=== PATIENT | male | born 1935 | race Caucasian/White ===

== ENCOUNTER 2018-10-08 08:47 | Observation (INO) | payer MEDICARE ==
[~2018-10-08 08:47] MED LIST: Diazepam TAB(*) 5 MG PO PRN; NS 0.9% 1000 ML** 1,000 ML IV SCH
[2018-10-08] MEDS ORDERED: ceFAZolin* 2 GM* ONE DOSE (Duplex) IVPB (09:00)
[2018-10-08] MEDS ORDERED: Iohexol 180 (CONTRAST) 10 ML SDV IV ONE (10:10)
[2018-10-08] MEDS ORDERED: Lidocaine 1% INJ* 10 MG/ML 30 ML SDV ONE (10:11)
[2018-10-08 10:29] LABS: Hematocrit 36 % (42-52); Hemoglobin 12.3 g/dL (14.0-18.0); Mean Corpuscular HGB Conc 34 g/dL (31-36); Mean Corpuscular Hemoglobin 32 pg (27-31); Mean Corpuscular Volume 94 fL (80-94); Mean Platelet Volume 8.1 fL (7.4-10.4); Platelet Count 146 10^3/uL (150-450); Red Blood Count 3.84 10^6 /uL (4.18-5.48); Red Cell Distribution Width 13 % (10.5-15); White Blood Count 5.6 10^3/uL (3.5-10.8)
[2018-10-08 10:37] LABS: Activated Partial Thrombo Time 33.9 seconds (26.0-36.3); INR 1.09 (0.82-1.09)
[2018-10-08 10:47] LABS: BUN/Creatinine Ratio 23.1 (8-20); Calcium 9.7 mg/dL (8.6-10.3); EGFR Non-African American 65.3 (>60); Potassium 3.9 mmol/L (3.5-5.0)
[2018-10-08] MEDS ORDERED: Midazolam* 1 MG/ML 5 ML VIAL (5 MG) ONE (10:50)
[2018-10-08] MEDS ORDERED: Flumazenil* 0.1 MG/ML 5 ML MDV ONE (10:50)
[2018-10-08] MEDS ORDERED: Naloxone* 0.4 MG/ML 1 ML VIAL ONE (10:50)
[2018-10-08] MEDS ORDERED: fentaNYL* 50 MCG/ML 2 ML VIAL (100 MCG VIAL) ONE (11:35)
[2018-10-08] MEDS ORDERED: ceFAZolin 1 GM ADVAN(*) 1 GM in NS 0.9% 50 ML* 50 ML IVPB SCH (18:00)
[2018-10-08] MEDS ORDERED: CMC: Rosuvastatin (NF) 5 MG TAB PO SCH (18:30)
[2018-10-08] MEDS ORDERED: Finasteride TAB* 5 MG PO SCH ×2 (18:30→18:31)
[2018-10-08] MEDS ORDERED: Tamsulosin CAP* 0.4 MG PO SCH (18:30)
[2018-10-08] MEDS: Acetaminophen TAB* 325 MG PO PRN (20:03)
[2018-10-08] MEDS: Carvedilol TAB* 6.25 MG PO SCH (20:04)
[2018-10-08] MEDS: ceFAZolin 1 GM ADVAN(*) 1 GM in NS 0.9% 50 ML* 50 ML IVPB SCH (20:10)
[2018-10-08] MEDS: MAGNESIUM OXIDE PO SCH (20:12)
[2018-10-09] MEDS: Acetaminophen TAB* 325 MG PO PRN ×2 (01:12→08:46)
[2018-10-09] MEDS: ceFAZolin 1 GM ADVAN(*) 1 GM in NS 0.9% 50 ML* 50 ML IVPB SCH ×2 (04:25→11:12)
[2018-10-09] MEDS: MAGNESIUM OXIDE PO SCH (08:37)
[2018-10-09] MEDS: Carvedilol TAB* 6.25 MG PO SCH (08:47)
[2018-10-09] MEDS ORDERED: Ramipril CAP* 10 MG PO SCH (09:00)
[2018-10-09] MEDS ORDERED: Polyethylene Glycol 3350* 17 GM PACKET PO SCH (09:00)
[2018-10-09] MEDS ORDERED: PTO: Tiotropium Brom/Olodaterol(NF) 4 GM 60 PUFF MDI INH SCH (09:00)
[2018-10-09] MEDS ORDERED: Multivitamins/Minerals TAB PO SCH (09:00)
[2018-10-09 11:52] VITALS: BP 152/68
--- NOTE | 2018-10-13 03:03 | OP ---
CC: Dr. Matthews.* DATE OF OPERATION: 10/08/18 - ROOM #445 DATE OF : 35 SURGEON: Marleni Barragan MD. ANESTHESIA: MAC. PRE-OP DIAGNOSIS: High-degree heart block with bradycardia. POST-OP DIAGNOSIS: High-degree heart block with bradycardia. OPERATIVE PROCEDURE: Dual-chamber pacemaker implantation. ESTIMATED BLOOD LOSS: Less than 5 cc. COMPLICATIONS: None. DESCRIPTION OF PROCEDURE: The indications, risks, and benefits of the procedure had been discussed with the patient, in the presence of his , prior to the procedure as an outpatient and also questions were answered on the day of the procedure and he was amenable. The patient is right handed and the left subclavian fossa was prepped and draped in the usual sterile fashion. A time-out was called. The patient received a total of 7 mg of Versed and 25 mcg of fentanyl for sedation as well as 1% lidocaine for local anesthesia throughout the entire procedure. The patient received 10 cc of radiopaque dye in the left upper extremity outlining the left axillary and the subclavian vein. Following this, local anesthesia was given. Using a 10-blade knife, a 2-cm incision was made in the left subclavian fossa and using Bovie and blunt dissection it was extended to the level of the pectoralis muscle. Additional lidocaine was infused medially and laterally following this using blunt dissection and a small pocket was fashioned. Using modified Seldinger technique, the left subclavian vein was cannulated and , using fluoroscopic guidance, a guidewire was inserted into the right atrium. This procedure was repeated with a second guidewire. Using an introducer technique, the right ventricular lead was guided initially into the apex and then slid up into the septum and actively fixed in place. Pacing and sensing thresholds were good on the second try. Using the other guidewire and introducer technique, the atrial lead was guided into the right-atrial appendage and actively fixed in place. Pacing and sensing thresholds were good. The leads were then sewn to the pocket, taking care to ensure adequate slack for movement. Following this, the pocket was copiously irrigated with normal saline. The leads were then attached to the generator, the generator was placed in the pocket. Pacing and sensing thresholds were again checked from the pocket, were good. The incision was closed using two layers of resorbable sutures, 2-0, followed by 4-0, followed by raymond and an external dressing. FINDINGS: The system is an MRI-compatible system by [employer]. The device is a [employer] model number W1DR01, serial number [id number]. Atrial lead is a Medtronic model 5076-52, serial number [id number]. The ventricular lead is a Medtronic model 5076-58, serial number [id number]. R-waves were sensed at 2.7 mV with an atrial lead impedance of 574 ohms and an atrial pacing threshold of 1 volt at 0.5 msec. R-waves were sensed at 10.6 mV with a ventricular lead impedance of 658 ohms and a ventricular pacing threshold of 0.4 volts at 0.5 msec. The patient was hemodynamically stable throughout the procedure. Again, no complication. [id number]/[facility] #: [id number] HAM
--- NOTE | 2018-10-13 21:13 | DS ---
CC: Dr. Matthews * DISCHARGE SUMMARY: DATE OF ADMISSION: DATE OF DISCHARGE: 10/09/18 HISTORY OF PRESENT ILLNESS AND HOSPITAL COURSE: The patient is an 83-year-old gentleman with bradycardia and evidence of high-degree heart block after several weeks of event monitor readings, long first-degree heart block, second- degree heart block type I, but with sleep evidence of higher degree heart block with 2 sinus beats unconducted. The patient has never fainted, but discussion had about marked high-degree heart block and risk of progression of block were discussed extensively with the patient and his and they were amenable to proceeding for pacemaker implantation. The patient underwent dual-chamber pacemaker implantation on 10/08/18 without complication. On the day of discharge, he had some mild incisional tenderness, but otherwise felt well. PROBLEM LIST: 1. High-degree AV block, sinus bradycardia. 2. Coronary artery disease, on medical management. 3. Aortic aneurysm. 4. Hypertension. 5. Dyslipidemia. 6. Centripetal obesity. 7. Glucose intolerance. 8. Prostate cancer. 9. Osteoarthritis. 10. Spinal stenosis. PAST SURGICAL HISTORY: Includes appendectomy and tonsillectomy. MEDICATION INTOLERANCES: Include CODEINE and ULTRACET (itching and GI). PHYSICAL EXAMINATION: On the day of discharge, the patient is 6 feet, weighs 288 pounds with a BMI of 39. Blood pressure 152/68, pulse was 63, temperature 98 degrees, oxygen saturation on room air 96%, respiratory rate 16. General Appearance: Centripetally overweight elderly gentleman, lying at 30 to 40 degrees. His was in the room. He appeared comfortable. Psychologically, pleasant and cooperative. Neurologically, awake, alert, and oriented to person , place, and time. Grossly normal sensory and motor function in the bed. Skin : Warm, dry. Incision to the left subclavian fossa healing well. No ecchymosis , no hematoma, and no infectious signs. HEENT: Mucous membranes moist. Neck: Without increased JVP. Breath sounds clear in all andrade. No wheezing, rales , or rhonchi. Coronary: S1, S2, regular. Abdomen: Overweight. Lower extremities were warm. DIAGNOSTIC STUDIES: Chest x-ray from 10/08/18 and 10/09/18 both showed good position of both leads. No pneumothorax. Pacemaker interrogation done on the day of discharge showed he was atrially pacing 77% of the time, ventricularly pacing 75% of the time. Thresholds were checked. P waves sensed at 3.4 mV with an atrial lead impedance of 399 ohms and a ventricular pacing threshold of 0.5 V at 0.4 msec. R waves sensed at 7.6 mV with a ventricular lead impedance of 494 ohms and a ventricular pacing threshold of 0.5 V at 0.4 msec. No tachyarrhythmias overnight. ASSESSMENT: In conclusion, Mr. Shen is an 83-year-old gentleman with high - degree atrioventricular block as above who underwent dual-chamber pacemaker implantation without complications and hemodynamically stable on the day of discharge. DISCHARGE MEDICATIONS: As follows: 1. Tylenol p.r.n. 2. Keflex 500 mg t.i.d. for 4 days. 3. Aspirin 81 mg a day. 4. Calcium and vitamin D. 5. Coreg 6.25 mg b.i.d. 6. Finasteride 5 mg a day. 7. Glucosamine/chondroitin. 8. Magnesium oxide 500 mg b.i.d. 9. MultiVites 1 tab daily. 10. PEG 1 packet daily. 11. Ramipril 10 mg a day. 12. Rosuvastatin 5 mg a day. 13. Tamsulosin 0.4 mg a day. 14. Tiotropium bromide inhaler 2 puffs b.i.d. Eliquis has been held and was not resumed on discharge. We will decide on outpatient followup. OUTPATIENT FOLLOWUP: Will be in 1 week for wound check and 1 month for full interrogation and evaluation. CONCLUSION: Uncomplicated pacemaker implantation. CONDITION AT DISCHARGE: Stable and good. DISPOSITION: Home. [id number]/[facility] #: [id number] [facility]
== END 2018-10-09 13:00 | disposition home or self-care (01) ==
LOC: CHICATH 08:47 → MEDTELE 12:28
PROVIDERS: ADMIT Specialist; ATTEND Specialist
DX: I44.2 Atrioventricular block, complete (principal); I44.0 Atrioventricular block, first degree; I44.1 Atrioventricular block, second degree; I71.2 Thoracic aortic aneurysm, without rupture; I10 Essential (primary) hypertension; E78.5 Hyperlipidemia, unspecified; Z96.641 Presence of right artificial hip joint; M16.10 Unilateral primary osteoarthritis, unspecified hip; M70.60 Trochanteric bursitis, unspecified hip; I25.10 Atherosclerotic heart disease of native coronary artery without angina pectoris; E66.9 Obesity, unspecified; E74.39 Other disorders of intestinal carbohydrate absorption; C61 Malignant neoplasm of prostate; K44.9 Diaphragmatic hernia without obstruction or gangrene
CPT/HCPCS: 33208; 36415; 71045; 71046; 80048; 85027; 85610; 85730; 93005; 96365; 96366; 96372; 96374; 99156; 99157; A9270-GY; C1785; C1892; C1898; G0378; J0690; J2250; J2310; J3010

== ENCOUNTER 2019-07-22 10:42 | Inpatient (IN) | payer MEDICARE ==
--- NOTE | 2019-07-09 17:41 | HP ---
HISTORY AND PHYSICAL: DATE OF ADMISSION/SURGERY: 07/22/19 DATE OF OFFICE VISIT: 07/09/19 SURGEON: Aundrea Cuevas MD * (DICTATED BY SAHYNE STRONG) PROCEDURE: Left total hip arthroplasty. CHIEF COMPLAINT: Left hip pain. HISTORY OF PRESENT ILLNESS: Mr. Shen is an 84-year-old gentleman with severe end-stage osteoarthritis of the left hip. He has failed conservative treatment and elected to proceed with a left total hip arthroplasty. PAST MEDICAL HISTORY: 1. Aortic aneurysm. 2. Pacemaker. 3. AFib. 4. Prostate cancer. 5. Diabetes. 6. Chronic kidney disease stage 2. PAST SURGICAL HISTORY: 1. Right total hip arthroplasty. 2. Pacemaker placement. 3. Tonsillectomy. 4. Foot surgery. 5. Appendectomy. CURRENT MEDICATIONS: 1. Multaq 400 mg twice a day. 2. Eliquis 5 mg twice a day. 3. Ramipril 5 mg 2 tabs daily. 4. Coreg 3.125 mg 2 tabs twice a day. 5. Crestor 5 mg a day. 6. Proscar 5 mg daily. 7. Centrum Silver. 8. Glucosamine. 9. Polyethylene glycol. 10. Aspirin 81 mg a day. 11. Tamsulosin 0.4 mg. 12. Calcium with vitamin D. 13. Stiolto Respimat inhaler. 14. Tylenol as needed. 15. MiraLAX. ALLERGIES: CODEINE, ULTRACET and TYLENOL NO. 3 causing itching. FAMILY HISTORY: Coronary artery disease and COPD. SOCIAL HISTORY: He is an 84-year-old gentleman, lives with his . He does not smoke. REVIEW OF SYSTEMS: A complete 14-point review of systems was reviewed with the patient. Positive for diabetes. He denies history of DVT, PE, hepatitis, HIV, or anesthesia problems. PHYSICAL EXAMINATION GENERAL: He is well developed, well nourished, in no acute distress. VITAL SIGNS: He stands 72 inches tall, weighs 246 pounds. His blood pressure is 128/72 and his heart rate is 67. HEENT: Normocephalic, atraumatic. NECK: Supple. No palpable lymph nodes. PULMONARY: The lungs are clear to auscultation bilaterally. CARDIO: Regular rate and rhythm. Strong S1, S2. ABDOMEN: Soft, nontender, nondistended. NEUROLOGICAL: He is alert and oriented x3. MUSCULOSKELETAL: Left lower extremity: The skin is intact. There are no open wounds or abrasions. He walks with an antalgic-type gait favoring the left hip. He has decreased internal and external rotation. He is able to dorsiflex and plantar flex. There is a 2+ dorsalis pedis pulse and intact sensation. ASSESSMENT AND PLAN: Mr. Shen is an 84-year-old gentleman with severe end- stage osteoarthritis of the left hip. He has failed conservative treatment and elected to proceed with a left total hip arthroplasty. The surgery is scheduled for 07/22/[address] Cuevas discussed the risks and benefits of the surgery at today's visit and all of his questions were answered. We will not give TXA to this patient. His last dose of Eliquis will be on 07/19/19. He will continue his daily aspirin. SHAYNE STRONG [id number]/[facility] #: [id number] [facility]
[~2019-07-22 10:42] MED LIST changes: +Buffered Lidocaine 1% SYRIN* 1 ML/SYRINGE INTRADERM ONE; -Diazepam TAB(*) 5 MG PO PRN; +Lactated Ringers 1000 ML Bag* 1,000 ML IV SCH; -NS 0.9% 1000 ML** 1,000 ML IV SCH
--- OUTSIDE RECORDS SUMMARY | 2019-07-22 10:47 | XMS REPORT | Continuity of Care Document ---
:1935 External Reference #:[id number] Author Name Aundrea Cuevas M.D. (transmitted by agent of provider Darlene Francis) Address [address] [place] [address] Problems Active Problems Provider Date Essential hypertension Marleni Barragan M.D. Onset: 04/19/2013 Aneurysm of thoracic aorta Marleni Barragan M.D. Onset: 04/19/2013 Benign essential hypertension Marleni Barragan M.D. Onset: 11/08/2014 Hyperlipidemia Marleni Barragan M.D. Onset: 11/08/2014 Coronary arteriosclerosis Marleni Barragan M.D. Onset: 11/08/2014 Trochanteric bursitis Storm Moraes M.D. Onset: 04/28/2015 Localized, primary osteoarthritis of the Storm Moraes M.D. Onset: 2015 pelvic region and thigh Prosthetic arthroplasty of the hip Storm Moraes M.D. Onset: 07/20/2015 First degree atrioventricular block Marleni Barragan M.D. Onset: 07/30/2018 Complete atrioventricular block Marleni Barragan M.D. Onset: 09/25/2018 Atrioventricular block, second degree Marleni Barragan M.D. Onset: 09/25/2018 Cardiac pacemaker in situ Marleni Barragan M.D. Onset: 01/29/2019 Aortic aneurysm Marleni Barragan M.D. Onset: 01/29/2019 Paroxysmal atrial fibrillation Marleni Barragan M.D. Onset: 01/29/2019 Social History Type Date Description Comments Sex Unknown ETOH Use Occasionally consumes holiday dinners wine ETOH Use Occasionally consumes beer Tobacco Use Start: Unknown Patient is a former quit in 1984 End: Unknown smoker Recreational Drug Use Denies Drug Use Smoking Status Reviewed: 07/09/19 Patient is a former quit in 1985 smoker Exercise Type/Frequency Exercises regularly stretching exercises twice daily Physical therapy 30 minutes twice weekly Allergies, Adverse Reactions, Alerts Active Allergies Reaction Severity Comments Date Codeine itching upper body tylenol with codeine , per 07/20/2015 patient Ultracet dizziness, N&V 07/20/2015 Tylenol 3 05/11/2019 Inactive Allergies NKDA 03/17/2012 Medications Active Medications SIG Qnty Indications Ordering Date Provider Multaq Take One Tablet 180tabs Dee Dee Rome, 12/29/2018 400mg Tablets By Mouth Twice A N.P. Day Eliquis 1 by mouth twice 180tabs Dee Dee Rome, 11/04/2018 5mg Tablets a day N.P. Ramipril 2 tabs by mouth 180caps Dee Dee Rome, 09/28/2018 5mg Capsules every day N.P. Coreg 2 tabs by mouth 360tabs Marleni Barragan, 09/25/2018 3.125mg Tablets twice a day M.D. Crestor 1 tab daily 36tabs Dee Dee Rome, 01/28/2018 5mg Tablets N.P. Amoxicillin Take 4 Capsules 8caps Storm Woodino, 02/20/2015 500mg By Mouth One M.D. Capsules Hour Before Dental Work Proscar 1 po qd 90tabs Satish Matthews, 5mg Tablets Centrum Silver 1 po qd 30tabs Satish Matthews, Tablets Glucosamine 1 tablet po Unknown Chondroitin twice daily 500mg/400mg Tablets Polyethylene Glycol 1 scoop in 8 oz QS Satish Matthews, 3350 water daily 3350 Granules Aspirin 81 po qd Satish Matthews, 81mg Tablets MD SANDS Tamsulosin HCL 2 po 1/2 hr 30caps Hardik Garcia, 0.4mg after dinner MD Capsules Calcium + D3 1 by mouth twice Unknown daily [id number] Tablets Stiolto Respimat 2 puff once Satish Matthews, daily (started MD 2.5-2.5mcg/Act Aerosol sat. 11/09/15 1 month trial) Acetaminophen Extra up to 4 per day Unknown Strength as needed for 500mg Tablets pain Miralax 17 grams by Unknown Powder mouth every day as needed Immunizations Description No Information Available Vital Signs Date Vital Result Comment 07/09/2019 12:57pm Height 72 inches 6'0" Weight 246.00 lb Heart Rate 67 /min BP Systolic 128 mmHg BP Diastolic 72 mmHg Body Temperature 97.1 F Pain Level 5 BMI (Body Mass Index) 33.4 kg/m2 07/05/2019 3:33pm Height 72 inches 6'0" Weight 250.00 lb with shoes Heart Rate 70 /min BP Systolic Sitting 130 mmHg Rue reg cuff BP Diastolic Sitting 82 mmHg Rue reg cuff BP Systolic Standing 124 mmHg Rue reg cuff BP Diastolic Standing 72 mmHg Rue reg cuff Respiratory Rate 16 /min BMI (Body Mass Index) 33.9 kg/m2 Results Test Acquired Date Facility Test Result H/L Range Note Comp Metabolic 03/19/2019 [facility] Sodium 140 mmol/L Normal 135-145 Panel [address] [place] [address] [phone] Potassium 4.2 mmol/L Normal 3.5-5.0 Chloride 108 mmol/L Normal 101-111 Co2 Carbon Dioxide 26 mmol/L Normal 22-32 Anion Gap 6 mmol/L Normal 2-11 Glucose 90 mg/dL Normal 70-100 Blood Urea Nitrogen 22 mg/dL Normal 6-24 Creatinine 1.01 mg/dL Normal 0.67-1.17 One Over Creatinine 0.99 BUN/Creatinine Ratio 21.8 High 8-20 Calcium 9.6 mg/dL Normal 8.6-10.3 Total Protein 6.3 g/dL Low 6.4-8.9 Albumin 4.0 g/dL Normal 3.2-5.2 Globulin 2.3 g/dL Normal 2-4 Albumin/Globulin Ratio 1.7 Normal 1-3 Total Bilirubin 0.60 mg/dL Normal 0.2-1.0 Alkaline Phosphatase 131 U/L High 34-104 Alt 19 U/L Normal 7-52 Ast 17 U/L Normal 13-39 Egfr Non- 70.5 >60 Egfr 85.4 >60 1 Lipid Profile 03/19/2019 [facility] Triglycerides 91 mg/dL 2 (Trig/Chol/HDL) [address] [place] [address] [phone] Cholesterol 100 mg/dL 3 HDL Cholesterol 32.5 mg/dL 4 LDL Cholesterol 49 mg/dL 5 Liver 03/19/2019 [facility] Direct 0.10 Normal 0.03-0.[address] Bilirubin mg/[place] [address] [phone] Indirect Bilirubin 0.5 mg/dL Normal 0.3-1.0 Laboratory test 03/19/2019 [facility] Uric Acid 7.2 mg/dL Normal 4.4-7.[address] [place] [address] [phone] Phosphorus 3.3 mg/dL Normal 2.5-5.0 Magnesium 1.7 mg/dL Low 1.9-2.7 CBC Auto 03/19/2019 [facility] White Blood 5.4 10^3/uL Normal 3.5-10.[address] [place] [address] [phone] Red Blood Count 4.08 10^6/uL Low 4.18-5.48 Hemoglobin 13.1 g/dL Low 14.0-18.0 Hematocrit 38 % Low 42-52 Mean Corpuscular Volume 93 fL Normal 80-94 Mean Corpuscular Hemoglobin 32 pg High 27-31 Mean Corpuscular HGB Conc 35 g/dL Normal 31-36 Red Cell Distribution Width 15 % Normal 10-15 Platelet Count 158 10^3/uL Normal 150-450 Mean Platelet Volume 8.8 fL Normal 7.4-10.4 Abs Neutrophils 3.9 10^3/uL Normal 1.5-7.7 Abs Lymphocytes 0.8 10^3/uL Low 1.0-4.8 Abs Monocytes 0.5 10^3/uL Normal 0-0.8 Abs Eosinophils 0.2 10^3/uL Normal 0-0.6 Abs Basophils 0.0 10^3/uL Normal 0-0.2 Abs Nucleated RBC 0.0 10^3/uL Granulocyte % 72.1 % Lymphocyte % 14.2 % Monocyte % 9.6 % Eosinophil % 3.6 % Basophil % 0.5 % Nucleated Red Blood Cells % 0.0 Creatinine 03/19/2019 [facility] Creatinine, 1.02 High 0.51- 0.[address] Serum mg/[place] [address] [phone] Urine Collection Time 24 hr Urine Total Volume 2500 mL Urine Creatinine Concentration 50.72 mg/dL Creatinine Clearance 86 mL/min Low 97-137 Total Protein 24HR 03/19/2019 [facility] Urine Collection Time 24 hr Urine [address] [place] [address] [phone] Urine Total Volume 2500 mL Urine TP Concentration 4 mg/dL Urine Total Protein/24HR 100 mg/24Hr Normal 0-165 1 Because ethnic data is not always readily available, this report includes an eGFR for both -Americans and non- Americans. The National Kidney Disease Education Program (NKDEP) does not endorse the use of the MDRD equation for patients that are not between the ages of 18 and 70, are , have extremes of body size, muscle mass, or nutritional status, or are non- or non-. According to the National Kidney Foundation, irrespective of diagnosis, the stage of the disease is based on the level of kidney function: Stage Description GFR(mL/min/1.73 m(2)) 1 Kidney damage with normal or decreased GFR 90 2 Kidney damage with mild decrease in GFR 60-89 3 Moderate decrease in GFR 30-59 4 Severe decrease in GFR 15-29 5 Kidney failure <15 (or dialysis) 2 Desirable: <150 Borderline High: 150-199 High: 200-499 Very High: >500 3 Desirable: <200 Borderline High: 200-239 High: >239 4 Low: <40 Desirable: 40-60 High: >60 5 Desirable: <100 Near Optimal: 100-129 Borderline High: 130-159 High: 160-189 Very High: >189 Procedures Date Code Description Status 07/07/2019 31884 Treadmill Interp/Report Only Completed 07/07/2019 30504 Stress Test Supervsn W/Out I/R Completed 07/05/2019 61586 Pace Maker Eval W/Iterative Adjment Dual Lead Completed 07/05/2019 45274 Pace Maker Eval W/Iterative Adjment Dual Lead Completed 07/05/2019 83430 EKG Tracing & Interpretation Completed 06/04/2019 28710 Icd Eval Sing,Dual,Multi Lead Remote Recpt Transm Tech Rev Completed Tech S 06/04/2019 24839 Pacemaker Check Remote Up To 90Days Single,Dual,Multiple Completed Lead 03/02/2019 92223 Icd Eval Sing,Dual,Multi Lead Remote Recpt Transm Tech Rev Completed Tech S 03/02/2019 70645 Icd Eval Sing,Dual,Multi Lead Remote Recpt Transm Tech Rev Completed Tech S 03/02/2019 23084 Pacemaker Check Remote Up To 90Days Single,Dual,Multiple Completed Lead 03/02/2019 94935 Pacemaker Check Remote Up To 90Days Single,Dual,Multiple Completed Lead 01/15/2019 77911 EKG Tracing & Interpretation Completed Medical Devices Description No Information Available Encounters Type Date Location Provider Dx Diagnosis Office Visit 06/11/2019 [facility] Aundrea Cuevas, M25.552 Pain in left hip 2:15p at [facility] M16.12 Unilateral primary osteoarthritis, left hip Office Visit 03/29/2019 1:00p [facility] Nephrology Andre AHannah I12.9 Hypertensive MD Zuleima chronic kidney disease w stg 1-4/unsp [facility] kdny N18.2 Chronic kidney disease, stage 2 (mild) E78.5 Hyperlipidemia, unspecified I10 Essential (primary) hypertension Office Visit 01/29/2019 2:00p [facility] Marleni Barragan, Z95.0 Presence of Of [facility] Collins cardiac pacemaker I71.9 Aortic aneurysm of unspecified site, without rupture I25.10 Athscl heart disease of [place] coronary artery w/o ang pctrs I48.0 Paroxysmal atrial fibrillation M48.00 Spinal stenosis, site unspecified I10 Essential (primary) hypertension Office Visit 01/15/2019 2:00p [facility] Dee Dee SHannah I48.0 Paroxysmal atrial Foster, N.P. fibrillation I44.1 Atrioventricular block, second degree R94.31 Abnormal electrocardiogram [ECG] [EKG] Z95.0 Presence of cardiac pacemaker I10 Essential (primary) hypertension I71.9 Aortic aneurysm of unspecified site, without rupture I25.10 Athscl heart disease of [place] coronary artery w/o ang pctrs Assessments Date Code Description Provider 07/09/2019 M25.552 Pain in left hip Aundrea uCevas M.D. 07/09/2019 M16.12 Unilateral primary osteoarthritis, left Aundrea Mason, M.D. hip 07/05/2019 Z95.0 Presence of cardiac pacemaker Marleni Barragan M.D. 07/05/2019 Z01.810 Encounter for preprocedural Marleni Barragan M.D. cardiovascular examination 07/05/2019 Z95.0 Presence of cardiac pacemaker Ica Pacer Schedule 07/05/2019 I44.1 Atrioventricular block, second degree Marleni Barragan M.D. 07/05/2019 I25.10 Atherosclerotic heart disease of [place] Marleni Barragan M.D. coronary artery without angina pectoris 07/05/2019 I44.1 Atrioventricular block, second degree Ica Pacer Schedule 07/05/2019 I48.0 Paroxysmal atrial fibrillation Marleni Barragan M.D. 07/05/2019 I10 Essential (primary) hypertension Marleni Barragan M.D. 07/05/2019 E78.5 Hyperlipidemia, unspecified Marleni Barragan M.D. 07/05/2019 N18.2 Chronic kidney disease, stage 2 (mild) Marleni Barragan M.D. 07/05/2019 Z95.0 Presence of cardiac pacemaker Marleni Barragan M.D. 07/05/2019 I71.2 Thoracic aortic aneurysm, without rupture Marleni Barragan M.D. 06/11/2019 M25.552 Pain in left hip Aundrea Cuevas M.D. 06/11/2019 M16.12 Unilateral primary osteoarthritis, left Aundrea Cuevas M.D. hip 06/04/2019 Z95.0 Presence of cardiac pacemaker Remote Device Checks 06/04/2019 I48.0 Paroxysmal atrial fibrillation Remote Device Checks 06/04/2019 I44.1 Atrioventricular block, second degree Remote Device Checks 03/29/2019 I12.9 Hypertensive chronic kidney disease with Andre Dewey MD stage 1 through stage 4 chronic kidney disease, or unspecified chronic kidney disease 03/29/2019 N18.2 Chronic kidney disease, stage 2 (mild) Andre Dewey MD 03/29/2019 E78.5 Hyperlipidemia, unspecified Andre Dewey MD 03/29/2019 I10 Essential (primary) hypertension Andre Dewey MD 03/02/2019 Z95.0 Presence of cardiac pacemaker Marleni Barragan M.D. 03/02/2019 Z95.0 Presence of cardiac pacemaker Remote Device Checks 03/02/2019 I48.0 Paroxysmal atrial fibrillation Marleni Barragan M.D. 03/02/2019 I48.0 Paroxysmal atrial fibrillation Remote Device Checks 03/02/2019 I44.1 Atrioventricular block, second degree Marleni Barragan M.D. 03/02/2019 I44.1 Atrioventricular block, second degree Remote Device Checks 01/29/2019 Z95.0 Presence of cardiac pacemaker Marleni Barragan M.D. 01/29/2019 I71.9 Aortic aneurysm of unspecified site, Marleni Barragan M.D. without rupture 01/29/2019 I25.10 Atherosclerotic heart disease of [place] Marleni Barragan M.D. coronary artery without angina pectoris 01/29/2019 I48.0 Paroxysmal atrial fibrillation Marleni Barragan M.D. 01/29/2019 M48.00 Spinal stenosis, site unspecified Marleni Barragan M.D. 01/29/2019 I10 Essential (primary) hypertension Marleni Barragan M.D. 01/15/2019 I44.7 Left bundle-branch block, unspecified Clay Nicolas DO [facility] 01/15/2019 I48.0 Paroxysmal atrial fibrillation Dee Dee Rome, N.P. 01/15/2019 I44.1 Atrioventricular block, second degree Dee Dee Rome, N.P. 01/15/2019 R94.31 Abnormal electrocardiogram [ECG] [EKG] Dee Dee Rome, N.P. 01/15/2019 Z95.0 Presence of cardiac pacemaker Dee Dee Rome, N.P. 01/15/2019 I10 Essential (primary) hypertension Dee Dee Rome, N.P. 01/15/2019 I71.9 Aortic aneurysm of unspecified site, Dee Dee Rome, N.P. without rupture 01/15/2019 I25.10 Atherosclerotic heart disease of [place] Dee Dee Rome, N.P. coronary artery without angina pectoris Plan of Treatment Future Appointment(s):08/06/2019 1:00 [facility] - Andre Dewey MD at [facility] Pfzlfunrbg85/13/2020 8:30 am - Aundrea Cuevas M.D. at [facility] [place]207/09/2019 - Aundrea Cuevas M.D.M25.552 Pain in left hipFollow up:Follow up : 2 weeks after fgodtfrB32.12 Unilateral primary osteoarthritis, left hip Functional Status Description No Information Available Mental Status Description No Information Available Referrals Description No Information Available
--- OUTSIDE RECORDS SUMMARY | 2019-07-22 10:47 | XMS REPORT | Continuity of Care Document ---
:1935 External Reference #:[id number] Author Name Aundrea Cuevas M.D. (transmitted by agent of provider Darlene Francis) Address [address] [place] [address] Problems Active Problems Provider Date Essential hypertension [...] Use Denies Drug Use Smoking Status Reviewed: 06/11/19 Patient is a former quit in 1985 [...] SIG Qnty Indications Ordering Date Provider Multaq 1 by mouth twice 180tabs Dee Dee Rome, 12/29/2018 400mg Tablets a day N.P. Eliquis 1 by mouth twice 180tabs Dee [...] D3 1 by mouth twice Unknown daily [id number] Tablets Stiolto Respimat 2 puff once Satish Matthews, daily (started MD 2.5-2.5mcg/Act Aerosol sat. 11/09/15 1 month trial) Acetaminophen Extra up to 4 per day Unknown Strength as needed for 500mg Tablets pain Miralax 17 grams by Unknown Powder mouth every day as needed Immunizations Description No Information Available Vital Signs Date Vital Result Comment 06/11/2019 2:38pm Height 72 inches 6'0" Weight 244.00 lb Heart Rate 60 /min BP Systolic 118 mmHg BP Diastolic 70 mmHg Respiratory Rate 18 /min Pain Level 5 BMI (Body Mass Index) 33.1 kg/m2 03/29/2019 12:43pm Height 72 inches 6'0" Weight 241.00 lb Heart Rate 77 /min BP Systolic Sitting 120 mmHg r arm BP Diastolic Sitting 68 mmHg r arm O2 % BldC Oximetry 98 % BMI (Body Mass Index) 32.7 kg/m2 Results Test Acquired Date Facility Test Result H/L Range Note Comp Metabolic 03/19/2019 [facility] Sodium 140 mmol/L Normal 135-145 Panel [address] [place] [address] [phone] Potassium 4.2 mmol/L Normal 3.5-5.0 Chloride 108 [...] Egfr 85.4 >60 1 Lipid Profile 03/19/2019 [facility] Triglycerides 91 mg/dL 2 (Trig/Chol/HDL) [address] [place] [address] [phone] Cholesterol 100 mg/dL 3 HDL Cholesterol 32.5 mg/dL 4 LDL Cholesterol 49 mg/dL 5 Liver 03/19/2019 [facility] Direct 0.10 Normal 0.03-0.[address] Bilirubin mg/[place] [address] [phone] Indirect Bilirubin 0.5 mg/dL Normal 0.3-1.0 Laboratory test 03/19/2019 [facility] Uric Acid 7.2 mg/dL Normal 4.4-7.[address] [place] [address] [phone] Phosphorus 3.3 mg/dL Normal 2.5-5.0 Magnesium 1.7 mg/dL Low 1.9-2.7 CBC Auto 03/19/2019 [facility] White Blood 5.4 10^3/uL Normal 3.5-10.[address] [place] [address] [phone] Red Blood Count 4.08 10^6/uL Low 4.18-5.48 [...] Red Blood Cells % 0.0 Creatinine 03/19/2019 [facility] Creatinine, 1.02 High 0.51- 0.[address] Serum mg/[place] [address] [phone] Urine Collection Time 24 hr Urine Total Volume 2500 mL Urine Creatinine Concentration 50.72 mg/dL Creatinine Clearance 86 mL/min Low 97-137 Total Protein 24HR 03/19/2019 [facility] Urine Collection Time 24 hr Urine [address] [place] [address] [phone] Urine Total Volume 2500 mL Urine TP Concentration 4 mg/dL Urine Total Protein/24HR 100 mg/24Hr Normal 0-165 Laboratory test 12/28/2018 [facility] Magnesium 1.7 mg/dL Low 1.9-2.7 finding [address] [place] [address] [phone] Basic Metabolic 12/28/2018 [facility] Sodium 140 mmol/L Normal 135-145 Panel [address] [place] [address] [phone] Potassium 3.9 mmol/L Normal 3.5-5.0 Chloride 107 mmol/L Normal 101-111 Co2 Carbon Dioxide 24 mmol/L Normal 22-32 Anion Gap 9 mmol/L Normal 2-11 Glucose 103 mg/dL High 70-100 Blood Urea Nitrogen 14 mg/dL Normal 6-24 Creatinine 1.02 mg/dL Normal 0.67-1.17 BUN/Creatinine Ratio 13.7 Normal 8-20 Calcium 9.9 mg/dL Normal 8.6-10.3 Egfr Non- 69.7 >60 Egfr 84.4 >60 6 Basic Metabolic Panel 12/28/2018 N2N/CCD Import Egfr Non- 69.7 > 60 Pry[place] Calcium 9.9 8.6-10.3 BUN/Creatinine Ratio 13.7 8-20 Creatinine 1.02 0.67-1.17 Blood Urea Nitrogen 14 6-24 Glucose 103 High 70-100 Egfr 84.4 >60 Anion Gap 9 2-11 Co2 Carbon Dioxide 24 22-32 Chloride 107 101-111 Potassium 3.9 3.5-5.0 Sodium 140 135-145 Magnesium 12/28/2018 N2N/CCD Import Magnesium 1.7 Low 1.9-2.7 1 Because ethnic data is not always [...] High: 130-159 High: 160-189 Very High: >189 6 Because ethnic data is not always readily [...] 15-29 5 Kidney failure <15 (or dialysis) Procedures Date Code Description Status 06/04/2019 63117 Icd Eval Sing,Dual,Multi Lead Remote Recpt Transm Tech Rev Completed Tech S 06/04/2019 52375 Pacemaker Check Remote Up To 90Days Single,Dual,Multiple Completed Lead 03/02/2019 13303 Icd Eval Sing,Dual,Multi Lead Remote Recpt Transm Tech Rev Completed Tech S 03/02/2019 27918 Icd Eval Sing,Dual,Multi Lead Remote Recpt Transm Tech Rev Completed Tech S 03/02/2019 10824 Pacemaker Check Remote Up To 90Days Single,Dual,Multiple Completed Lead 03/02/2019 82408 Pacemaker Check Remote Up To 90Days Single,Dual,Multiple Completed Lead 01/15/2019 31156 EKG Tracing & Interpretation Completed 01/06/2019 03422 ECHO Transthoracic, Real-Time 2D With Doppler And Color Completed Flow 01/06/2019 42867 ECHO Transthoracic, Real-Time 2D With Doppler And Color Completed Flow 12/31/2018 83080 Cardioversion Completed 12/28/2018 64163 EKG Tracing & Interpretation Completed Medical Devices Description No Information Available Encounters Type Date Location Provider Dx Diagnosis Office Visit 03/29/[address] [facility] Nephrology Mohammacelia A. 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 Collins cardiac pacemaker I71.9 Aortic aneurysm of unspecified site, without rupture I25.10 Athscl heart disease of [place] coronary artery w/o ang pctrs I48.0 Paroxysmal atrial fibrillation M48.00 Spinal stenosis, site unspecified I10 Essential (primary) hypertension Office Visit 01/15/2019 2:00p [facility] Dee Dee S. I48.0 Paroxysmal atrial Foster, N.P. fibrillation I44.1 Atrioventricular block, second degree R94.31 Abnormal electrocardiogram [ECG] [EKG] Z95.0 Presence of cardiac pacemaker I10 Essential (primary) hypertension I71.9 Aortic aneurysm of unspecified site, without rupture I25.10 Athscl heart disease of [place] coronary artery w/o ang pctrs Office Visit 12/28/2018 [place] Dee Dee S. I44.1 Atrioventricular 11:00a Cardiology Foster, N.P. 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 01/29/2019 M48.00 Spinal stenosis, site unspecified Marleni Barragan M.D. 01/29/2019 I10 Essential (primary) hypertension Marleni Barragan M.D. 01/15/2019 I44.7 Left bundle-branch block, unspecified Clay Nicolas DO [facility] 01/15/2019 I48.0 Paroxysmal atrial fibrillation Dee Dee Rome N.P. 01/15/2019 I44.1 Atrioventricular block, second degree Dee Dee Rome N.P. 01/15/2019 R94.31 Abnormal electrocardiogram [ECG] [EKG] Dee Dee Rome, N.P. 01/15/2019 Z95.0 Presence of cardiac pacemaker Dee Dee Rome, N.P. 01/15/2019 I10 Essential (primary) hypertension Dee Dee Rome, N.P. 01/15/2019 I71.9 Aortic aneurysm of unspecified site, Dee Dee SimHannah Wild, N.P. 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 01/06/2019 I48.0 Paroxysmal atrial fibrillation [place] ECHO Schedule 12/28/2018 I48.0 Paroxysmal atrial fibrillation Marleni Barragan M.D. 12/28/2018 I44.1 Atrioventricular block, second degree Dee Dee RoneyHannah Rome, N.P. 12/28/2018 R94.31 Abnormal electrocardiogram [ECG] [EKG] Marleni Barragan M.D. 12/28/2018 Z95.0 Presence of cardiac pacemaker Dee Dee SimHannah Wild, N.P. 12/28/2018 I48.0 Paroxysmal atrial fibrillation Dee Dee SHannah Rome, N.P. 12/28/2018 I10 Essential (primary) hypertension Dee Dee Rome, N.P. 12/28/2018 E78.5 Hyperlipidemia, unspecified Dee Dee RoneyHannah Rome, N.P. Plan of Treatment Future Appointment(s):07/26/2019 1:00 pm - Andre Dewey MD at [facility] Pelojtqpqb75/03/2020 - Aundrea Cuevas M.D.M25.552 Pain in left hipM16.12 Unilateral primary osteoarthritis, left hip Functional Status Description No Information Available Mental Status Description No Information Available Referrals Description No Information Available
--- OUTSIDE RECORDS SUMMARY | 2019-07-22 10:47 | XMS REPORT | Continuity of Care Document ---
:1935 External Reference #:[id number] Author Name Marleni Barragan M.D. (transmitted by agent of provider Tiffany Calvin) Address [address] [place] [id number] Problems Active Problems Provider Date Essential hypertension [...] Use Denies Drug Use Smoking Status Reviewed: 07/05/19 Patient is a former quit in 1985 [...] N.P. Amoxicillin Take 4 Capsules 8caps Storm Aleisha, 02/20/2015 500mg By Mouth One M.D. Capsules [...] D3 1 by mouth twice Unknown daily [id number] Tablets Stiolto Respimat 2 puff once Satish Matthews, daily (started 2.5-2.5mcg/Act Aerosol sat. 11/09/15 1 month trial) Acetaminophen Extra up to 4 per day Unknown Strength as needed for 500mg Tablets pain Miralax 17 grams by Unknown Powder mouth every day as needed Immunizations Description No Information Available Vital Signs Date Vital Result Comment 07/05/2019 3:33pm Height 72 inches 6'0" Weight 250.00 lb with shoes Heart Rate 70 /min BP Systolic Sitting 130 mmHg Rue reg cuff BP Diastolic Sitting 82 mmHg Rue reg cuff BP Systolic Standing 124 mmHg Rue reg cuff BP Diastolic Standing 72 mmHg Rue reg cuff Respiratory Rate 16 /min BMI (Body Mass Index) 33.9 kg/m2 06/11/2019 2:38pm Height 72 inches 6'0" Weight 244.00 lb Heart Rate 60 /min BP Systolic 118 mmHg BP Diastolic 70 mmHg Respiratory Rate 18 /min Pain Level 5 BMI (Body Mass Index) 33.1 kg/m2 Results Test Acquired Date Facility Test Result H/L Range Note Comp Metabolic 03/19/2019 [facility] Sodium 140 mmol/L Normal 135-145 Panel [address] [place] [address] [phone] Potassium 4.2 mmol/L Normal 3.5-5.0 Chloride 108 [...] Egfr 85.4 >60 1 Lipid Profile 03/19/2019 [facility] Triglycerides 91 mg/dL 2 (Trig/Chol/HDL) [address] [place] [address] [phone] Cholesterol 100 mg/dL 3 HDL Cholesterol 32.5 mg/dL 4 LDL Cholesterol 49 mg/dL 5 Liver 03/19/2019 [facility] Direct 0.10 Normal 0.03-0.[address] Bilirubin mg/[place] [address] [phone] Indirect Bilirubin 0.5 mg/dL Normal 0.3-1.0 Laboratory test 03/19/2019 [facility] Uric Acid 7.2 mg/dL Normal 4.4-7.[address] [place] [address] [phone] Phosphorus 3.3 mg/dL Normal 2.5-5.0 Magnesium 1.7 mg/dL Low 1.9-2.7 CBC Auto 03/19/2019 [facility] White Blood 5.4 10^3/uL Normal 3.5-10.[address] [place] [address] [phone] Red Blood Count 4.08 10^6/uL Low 4.18-5.48 [...] Red Blood Cells % 0.0 Creatinine 03/19/2019 [facility] Creatinine, 1.02 High 0.51- 0.[address] Serum mg/[place] [address] [phone] Urine Collection Time 24 hr Urine Total Volume 2500 mL Urine Creatinine Concentration 50.72 mg/dL Creatinine Clearance 86 mL/min Low 97-137 Total Protein 24HR 03/19/2019 [facility] Urine Collection Time 24 hr Urine [address] [place] [address] [phone] Urine Total Volume 2500 mL Urine TP [...] High: >189 Procedures Date Code Description Status 07/05/2019 30072 Pace Maker Eval W/Iterative Adjment Dual Lead Completed 07/05/2019 17421 EKG Tracing & Interpretation Completed 06/04/2019 52293 Icd Eval Sing,Dual,Multi Lead Remote Recpt Transm Tech Rev Completed Tech S 06/04/2019 93209 Pacemaker Check Remote Up To 90Days Single,Dual,Multiple Completed Lead 03/02/2019 72384 Icd Eval Sing,Dual,Multi Lead Remote Recpt Transm Tech Rev Completed Tech PinBridge 03/02/2019 54497 Icd Eval Sing,Dual,Multi Lead Remote Recpt Transm Tech Rev Completed Tech S 03/02/2019 57715 Pacemaker Check Remote Up To 90Days Single,Dual,Multiple Completed Lead 03/02/2019 46706 Pacemaker Check Remote Up To 90Days Single,Dual,Multiple Completed Lead 01/15/2019 94541 EKG Tracing & Interpretation Completed 01/06/2019 01336 ECHO Transthoracic, Real-Time 2D With Doppler And Color Completed Flow 01/06/2019 94205 ECHO Transthoracic, Real-Time 2D With Doppler And Color Completed Flow Medical Devices Description No Information Available Encounters Type Date Location Provider Dx Diagnosis Office Visit 06/11/2019 [facility] Aundrea Cuevas, M25.552 Pain in left hip 2:15p at [facility] M16.12 Unilateral primary osteoarthritis, left hip Office Visit 03/29/2019 1:00p [facility] Nephrology Andre AHannah I12.9 Hypertensive MD Zuleima chronic kidney disease w stg 1-4/unsp 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 I48.0 Paroxysmal atrial Foster, N.P. fibrillation I44.1 Atrioventricular block, second degree R94.31 Abnormal electrocardiogram [ECG] [EKG] Z95.0 Presence of cardiac pacemaker I10 Essential (primary) hypertension I71.9 Aortic aneurysm of unspecified site, without rupture I25.10 Athscl heart disease of [place] coronary artery w/o ang pctrs Assessments Date Code Description Provider 07/05/2019 Z01.810 Encounter for preprocedural Marleni Barragan M.D. cardiovascular examination 07/05/2019 Z95.0 Presence of cardiac pacemaker Ica Pacer Schedule 07/05/2019 I25.10 Atherosclerotic heart disease of [place] Marleni Barragan M.D. 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 01/29/2019 M48.00 Spinal stenosis, site unspecified Marleni Barragan M.D. 01/29/2019 I10 Essential (primary) hypertension Marleni Barragan M.D. 01/15/2019 I44.7 Left bundle-branch block, unspecified Clay Nicolas, DO [facility] 01/15/2019 I48.0 Paroxysmal atrial fibrillation Dee Dee S. Wild, N.P. 01/15/2019 I44.1 Atrioventricular block, second degree Dee Dee S. Wild, N.P. 01/15/2019 R94.31 Abnormal electrocardiogram [ECG] [EKG] Dee Dee S. Foster, N.P. 01/15/2019 Z95.0 Presence of cardiac pacemaker Dee Dee S. Wild, N.P. 01/15/2019 I10 Essential (primary) hypertension Dee Dee S. Foster, N.P. 01/15/2019 I71.9 Aortic aneurysm of unspecified site, Dee Dee S. Wild, N.P. without rupture 01/15/2019 I25.10 Atherosclerotic heart disease of [place] Dee Dee S. Wlid, N.P. coronary artery without angina pectoris 01/06/2019 I48.0 Paroxysmal atrial fibrillation Marleni Barragan M.D. 01/06/2019 I48.0 Paroxysmal atrial fibrillation [facility] Schedule Plan of Treatment Future Appointment(s):09/21/2019 1:40 pm - Andre Dewey MD at [facility] Hjapcidueo24/31/2020 1:00 pm - Aundrea Cuevas M.D. at [facility] at Psktcc1107/22/2019 8:30 am - Aundrea Cuevas M.D. at [facility] at Ociscz81 - Marleni Barragan M.D.Z01.810 Encounter for preprocedural cardiovascular rpuaessgxupB77.10 Atherosclerotic heart disease of [place] coronary artery without angina pectorisNew Orders:Stress Test, Pharmacologic Nuclear (Lexiscan) , Ordered: 07/05/19Follow up:OV or COLLECTION SUPERVISOR post stress test and pre opI48.0 Paroxysmal atrial fibrillationComments:No afib today on MultaqOn EliquisRecommendations:OK to hold Eliquis 2 days prior to surgery or as per your surgeon.I10 Essential (primary) hypertensionComments:Well qrmxoddhjrI08.5 Hyperlipidemia, unspecifiedComments:Good ilfhiteK65.2 Chronic kidney disease, stage 2 (mild)Comments:Dr Yanez95.0 Presence of cardiac pacemakerComments:Your pacemaker is working well.I71.2 Thoracic aortic aneurysm, without ruptureComments:Has f/u imaging scheduled 2019 Functional Status Description No Information Available Mental Status Description No Information Available Referrals Description No Information Available
--- OUTSIDE RECORDS SUMMARY | 2019-07-22 10:47 | XMS REPORT | Continuity of Care Document ---
:1935 External Reference #:[id number] Author Name Satish Matthews M.D. Address [address] [facility] [address] [place] [address] Care Team Providers Name Role Phone HCP given Care Team Information Grant Writer Unavailable [facility] - Urology Care Team Information Grant Writer [phone] Dino Campos MD - Nephrology Care Team Information Grant Writer Glenn Saavedra MD - Internal Care Team Information Grant Writer [phone] Medicine Marleni Barragan MD - Cardiovascular Care Team Information Grant Writer [phone] Disease Robin Rodriguez MD - Vascular & Care Team Information Grant Writer Interventional Radiology Zunilda Dozier MD - Physical Care Team Information Grant Writer Medicine & Rehabilitation Problems Active Problems Provider Date History of polyp of colon Luis Felipe Finch M.D. Onset: 05/27/2003 Benign essential hypertension Satish Matthews M.D. Onset: 12/16/2003 Type 2 diabetes mellitus Satish Matthews M.D. Onset: 12/16/2003 Disorder of lipid metabolism Satish Matthews M.D. Onset: 12/16/2003 Coronary arteriosclerosis Satish Matthews M.D. Onset: 12/16/2003 Obesity Satish Matthews M.D. Onset: 12/16/2003 Aneurysm of thoracic aorta Satish Matthews M.D. Onset: 03/21/2009 Gout Satish Matthews M.D. Onset: 03/21/2009 History of malignant neoplasm of prostate Satish Matthews M.D. Onset: 2013 Essential hypertension Satish Matthews M.D. Onset: 03/28/2015 Benign prostatic hypertrophy with outflow Satish Matthews M.D. Onset: 2015 obstruction Social History Type Date Description Comments Sex Unknown Tobacco Use Reviewed: 10/17/15 Denies Cigarette Use quit at age 50 (Jul 1985); smoked variable amounts, on and off for the prior 20 years, always <1ppd Smoking Status Reviewed: 10/17/15 Denies Cigarette Use quit at age 50 (Jul 1985); smoked variable amounts, on and off for the prior 20 years, always <1ppd ETOH Use Occasionally consumes alcohol Allergies, Adverse Reactions, Alerts Active Allergies Reaction Severity Comments Date Ultracet Nausea and Vomiting, dizziness 03/28/2015 Tylenol w/Codeine 3 severe upper body itching 03/28/2015 Inactive Allergies NKDA 06/29/2004 Medications Active Medications SIG Qnty Indications Ordering Date Provider Ramipril take two capsules I10 Unknown 07/06/2019 5mg Capsules by mouth every day for high blood pressure Multaq Take One Tablet By Unknown 06/22/2019 400mg Tablets Mouth Twice A Day PT For Spinal evaluate and treat, M48.062 Byron, 12/28/2018 Stenosis With instruct in Satish olivia M.D. Neurogenic L Leg modalities prn Claudication Carvedilol take 2 tablets by I10 Marleni Barragan, 12/27/2018 3.125mg mouth twice a day Tablets for blood pressure Acetaminophen 4 tabs a day as Unknown 12/27/2018 500mg needed Tablets Rosuvastatin Calcium take one tablet by 90tabs I25.10 Byron, 06/29/2018 mouth every day to Collins Covarrubias 5mg Tablets lower choloesterol and reduce risk of progressive heart disease E11.9 Aspirin Enteric 1 po qd I25.10 Satish Matthews, 06/28/2018 Coated Lorna.Eric 81mg Tablets Eliquis 1 tab by mouth twice a 180tabs I48.0 Unknown 01/06/2018 5mg Tablets day to decrease the risk of blood clots from atrial fibrillation Stiolto Respimat Inhale Two Puffs By 12units R05 Satish Matthews, 2015 Mouth Every Day For M.D. 2.5-2.5mcg/Act Cough And Chest Aerosol Congestion J41.0 Amoxicillin 4 caps by mouth 1 Unknown 03/27/2015 500mg Capsules hour before dental work Calcium + D3 2 by mouth every Unknown 06/30/2014 [id number] day Tablets Tamsulosin HCL Take 2 Capsules By 180caps N40.0 Satish Matthews, 2012 0.4mg Mouth 1/2 Hour M.D. Capsules After The Same Meal Each Day N40.1 Polyethylene Glycol use 1 cap full in 8 564.00 Satish Matthews, 2010 3350 oz of water every M.D. 3350NF Powder day; may increase to 2 caps as needed Finasteride Take One Tablet By 90tabs N40.0 Satish Matthews, 05/31/2009 5mg Tablets Mouth Every Day For M.D. Enlarged Prostate N40.1 Centrum Silver 1 po qd Unknown Glucosamine Condroitin 1 po bid Unknown Medications Administered in Office Medication SIG Qnty Indications Ordering Provider Date H1N1 Swine Flu Vaccine Nurse's Schedule 05/18/2009 Injection Immunizations CPT Code Status Date Vaccine Lot # [id number] Given 03/26/2019 Influenza Vaccine, Inactivated, Subunit, [id number] Adjuvanted, For Intrmus 88650 Given 03/18/2018 Influenza Vaccine, Inactivated, Subunit, [id number] Adjuvanted, For Intrmusc 67432 Given 03/05/2017 Influenza Vaccine Split Virus Preservative Free Im [id number] Use (hi-dose) 84612 Given 02/21/2016 Influenza Vaccine Split Virus Preservative Free Im [id number] Use (hi-dose) 85254 Given 04/11/2015 Prevnar 13 [id number] 76461 Given 04/11/2015 Influenza Vaccine Split Virus Preservative Free Im [id number] Use (hi-dose) 77701 Given 07/01/2014 Adacel or Boostrix, TDaP [id number] 18398 Given 02/22/2014 Influenza Vaccine Split Virus Preservative Free Im [id number] Use (hi-dose) 08967 Given 03/24/2013 Flu, Split Virus 3Yrs [id number] 07731 Given 03/18/2012 Flu, Split Virus 3Yrs [id number] 20847 Given 03/27/2011 Flu, Split Virus 3Yrs [id number] 75142 Given 03/20/2010 Flu, Split Virus 3Yrs [id number] 69994 Given 05/18/2009 Flu, Split Virus 3Yrs [id number] 29852 Given 09/19/2008 Td Immunization [id number] 35640 Given 03/26/2008 Flu, Split Virus 3Yrs [id number] 64066 Given 04/02/2007 Flu, Split Virus 3Yrs [id number] 21653 Given 01/12/2007 Zostavax [id number] 97676 Given 04/26/2006 Flu, Split Virus 3Yrs [id number] 76818 Given 03/19/2005 Flu, Split Virus 3Yrs 74716 Given 04/08/2003 Flu, Split Virus 3Yrs 28162 Given 02/16/2002 Pneumococcal Immunization 49349 Given 06/09/1997 Td Immunization Vital Signs Date Vital Result Comment 07/07/2019 3:59pm BP Systolic 118 mmHg BP Diastolic 74 mmHg Heart Rate 62 /min reg Respiratory Rate 12 /min not laboured Height 72 inches sneakers on, unsteady w/cane Weight 247.00 lb BMI (Body Mass Index) 33.5 kg/m2 12/28/2018 3:18pm BP Systolic 126 mmHg BP Diastolic 70 mmHg Weight 253.00 lb Results Test Acquired Date Facility Test Result H/L Range Note Laboratory test 07/07/2019 In House Hemoglobin A1c 5.4 finding Comp Metabolic 03/19/2019 [facility] Sodium 140 mmol/L Normal 135- 145 Panel [phone] Potassium 4.2 mmol/L Normal 3.5-5.0 Chloride 108 [...] >60 Egfr 85.4 >60 1 Lipid Profile (Trig/Chol/HDL) 03/19/2019 [facility] Triglycerides 91 mg /dL 2 [phone] Cholesterol 100 mg/dL 3 HDL Cholesterol 32.5 mg/dL 4 LDL Cholesterol 49 mg/dL 5 Liver Function 03/19/2019 [facility] Direct 0.10 mg/dL Normal 0.03- 0.18 Panel [phone] Bilirubin Indirect Bilirubin 0.5 mg/dL Normal 0.3-1.0 Laboratory test 03/19/2019 [facility] Uric Acid 7.2 mg/dL Normal 4.4- 7.6 finding [phone] Phosphorus 3.3 mg/dL Normal 2.5-5.0 Magnesium 1.7 mg/dL Low 1.9-2.7 CBC Auto Diff 03/19/2019 [facility] White Blood 5.4 10^3/uL Normal 3.5-10.8 [phone] Count Red Blood Count 4.08 10^6/uL Low 4.18-5.48 [...] Red Blood Cells % 0.0 Creatinine 03/19/2019 [facility] Creatinine, 1.02 mg/dL High 0.51- 0.95 Clearance [phone] Serum Urine Collection Time 24 hr Urine Total Volume 2500 mL Urine Creatinine Concentration 50.72 mg/dL Creatinine Clearance 86 mL/min Low 97-137 Total Protein 24HR Urine 03/19/2019 [facility] Urine Collection Time 24 hr [phone] Urine Total Volume 2500 mL Urine TP [...] High: >189 Procedures Date Code Description Status 07/06/2019 335659364 Diabetic Retinal Eye Exam Completed 06/29/2018 839776347 Diabetic Foot Exam Completed 09/07/2016 06297311 Colonoscopy Completed Medical Devices Description No Information Available Encounters Type Date Location Provider Dx Diagnosis Office Visit 07/07/2019 Main Office Satish Matthews, Z01.818 Encounter for other 3:30p M.DHannah preprocedural examination E11.9 Type 2 diabetes mellitus without complications M16.12 Unilateral primary osteoarthritis, left hip M25.552 Pain in left hip L57.0 Actinic keratosis I10 Essential (primary) hypertension I48.0 Paroxysmal atrial fibrillation Z68.33 Body mass index (BMI) 33.0-33.9, adult Assessments Date Code Description Provider 07/07/2019 Z01.818 Encounter for other preprocedural Satish Matthews M.D. examination 07/07/2019 E11.9 Type 2 diabetes mellitus without Satish Matthews M.D. complications 07/07/2019 M16.12 Unilateral primary osteoarthritis, left hip Satish Matthews M.D. 07/07/2019 M25.552 Pain in left hip Satish Matthews M.D. 07/07/2019 L57.0 Actinic keratosis Satish Matthews M.D. 07/07/2019 I10 Essential (primary) hypertension Satish Matthews M.D. 07/07/2019 I48.0 Paroxysmal atrial fibrillation Satish Matthews M.D. 07/07/2019 Z68.33 Body mass index (BMI) 33.0-33.9, adult Satish Matthews M.D. 03/26/2019 Z23 Encounter for immunization Nurse's Schedule Plan of Treatment Future Appointment(s):01/05/2020 1:45 pm - Satish Matthews M.D. at Main [facility]207/07/2019 - Satish Matthews M.D.Z01.818 Encounter for other preprocedural examinationComments:Pt is medically complicated but quite stable. 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 If he does well on his stress test and gets cleared from cardiology perspective, he may then proceed with the planned surgery.WRT his use of Eliquis, I would advise you have him take the last dose three days before procedure (ie, skip four doses on the two days before the procedure) and resume it 48-72hrs post op, but ultimatley thsi si being left to the surgeon's discretion.E11.9 Type 2 diabetes mellitus without complicationsComments:A1c 5.4 % today (diet controlled)Follow up:RTO 6 months recheck chronic problems w/ A1c , examine feet, LN cryo R ear jfhajjB29.12 Unilateral primary osteoarthritis, left hipM25.552 Pain in left hipL57.0 Actinic keratosisComments:on R ear; will treat w/ LN at next ovI10 Essential (primary) hypertensionNew Orders:Ua w/ micro , inhouse, Ordered: 07/07/19I48.0 Paroxysmal atrial jsalqzxrwqneC85.33 Body mass index (BMI) 33.0-33.9, adult Functional Status Description No Information Available Mental Status Description No Information Available Referrals Description No Information Available
[2019-07-22] MEDS ORDERED: Buffered Lidocaine 1% SYRIN* 1 ML/SYRINGE INTRADERM ONE (11:15)
[2019-07-22] MEDS ORDERED: ceFAZolin 2 GM in NS PREMIX(*) 2 GM/100 ML BAG IVPB ONE (11:15)
[2019-07-22] MEDS ORDERED: Midazolam* 1 MG/ML 2 ML VIAL (2 MG) ONE (11:46)
[2019-07-22] MEDS ORDERED: Propofol* 10 MG/ML 20 ML BTL ONE (11:46)
[2019-07-22] MEDS ORDERED: Lidocaine 2% PF * 5 ML VIAL ONE ×2 (11:46→11:48)
[2019-07-22] MEDS ORDERED: ROPIVACAINE 5 MG/ML 30 ML BTL (0.5%) ONE (11:48)
[2019-07-22] MEDS ORDERED: Acetaminophen IV 1GM/100ML * 0 ML ONE (12:05)
[2019-07-22] MEDS ORDERED: Metoclopramide IV* 5 MG/ML 2 ML VIAL ONE ×2 (12:14→15:27)
[2019-07-22] MEDS ORDERED: Ketorolac INJ* 30 MG/ML 1 ML VIAL ONE ×2 (12:14→15:27)
[2019-07-22] MEDS ORDERED: Ondansetron INJ* 2 MG/ML VIAL ONE ×2 (12:14→15:27)
[2019-07-22] MEDS ORDERED: Glycopyrrolate IV* 0.2 MG/ML 1 ML VIAL ONE ×2 (12:17→16:19)
[2019-07-22] MEDS ORDERED: Neostigmine Methylsulfate* 1 MG/ML 10 ML VIAL (1 mg/ml) ONE ×2 (12:17→16:19)
[2019-07-22 13:42] LABS: INR 1.18 (0.82-1.09)
[2019-07-22] MEDS ORDERED: Rocuronium* 10 MG/ML VIAL ONE (13:53)
[2019-07-22] MEDS ORDERED: fentaNYL* 50 MCG/ML 2 ML VIAL (100 MCG VIAL) ONE (13:53)
[2019-07-22] MEDS ORDERED: EPHEDrine (Pressors)* 50 MG/ML VIAL ONE (14:10)
[2019-07-22] MEDS ORDERED: Phenylephrine 40 MCG/ML SYRINGE ONE (15:04)
[2019-07-22] MEDS ORDERED: Phenylephrine 10 MG/ML VIAL* 1 ML VIAL ONE (15:07)
[2019-07-22] MEDS ORDERED: Ondansetron INJ* 2 MG/ML VIAL IV PRN (15:25)
[2019-07-22] MEDS ORDERED: Ondansetron TAB* 4 MG PO PRN (15:25)
[2019-07-22] MEDS ORDERED: Magnesium Hydroxide LIQ* 30 ML UDC PO PRN (15:25)
[2019-07-22] MEDS ORDERED: traMADol TAB* 50 MG PO PRN (15:25)
[2019-07-22] MEDS ORDERED: Cyclobenzaprine TAB* 10 MG PO PRN (15:25)
[2019-07-22] MEDS ORDERED: Ondansetron ODT TAB* 4 MG PO PRN (15:25)
[2019-07-22] MEDS ORDERED: diPHENhydraMINE PO* 25 MG PO PRN (15:25)
[2019-07-22] MEDS ORDERED: Polyethylene Glycol 3350* 17 GM PACKET PO PRN (15:25)
[2019-07-22] MEDS ORDERED: diPHENhydraMINE IV* 50 MG/ML 1 ml VIAL (BENADRYL) IV PRN (15:25)
[2019-07-22] MEDS ORDERED: Morphine INJ* 2 MG/ML 1 ML SYRINGE (TWO MG - NEW SYRINGE VERSION) IV PRN (15:25)
[2019-07-22] MEDS ORDERED: oxyCODONE/Acetamin 5/325 MG* TAB PO PRN (15:25)
[2019-07-22] MEDS ORDERED: oxyCODONE TAB* 5 MG TAB PO PRN ×2 (15:25→16:26)
[2019-07-22] MEDS ORDERED: Dexamethasone IV* 4 MG/ML 1 ML (4 MG) ONE (15:27)
[2019-07-22] MEDS ORDERED: Acetaminophen IV 1GM/100ML * 100 ML ONE (16:16)
[2019-07-22] MEDS ORDERED: Naloxone* 0.4 MG/ML 1 ML VIAL IV PRN (16:26)
[2019-07-22] MEDS ORDERED: DiMENhydriNATE IV* 50 MG/ML VIAL IV PUSH PRN (16:26)
[2019-07-22] MEDS ORDERED: Acetaminophen TAB* 325 MG PO PRN (16:26)
[2019-07-22] MEDS: HYDROmorphone INJ1* 1 MG/ML SYRINGE IV PRN ×5 (17:01→17:40)
[2019-07-22] MEDS ORDERED: HYDROmorphone INJ1* 1 MG/ML SYRINGE ONE (17:01)
[2019-07-22] MEDS ORDERED: CMC:Rosuvastatin (NF) 5 MG TAB PO SCH (18:00)
--- NOTE | 2019-07-22 18:23 | OP ---
Operative Report - Blank - Operative Report Date of Operation: 07/22/19 Note: MINAL ELLINGTON 1935 Date Of Surgery: 07/22/19 Aundrea Cuevas MD [employer] Architect: Stefanie BELLA did help throughout the procedure with preparation of the hip, wound retraction, manipulation of the hip, and wound closure. Anesthesiologist: Dr. Pantoja Anesthesia Type: Spinal Preoperative Diagnosis: Left severe degenerative osteoarthritis of the hip Postoperative Diagnosis: As above Procedure Performed: Left Total Hip Arthroplasty Complications: None Specimen: Femoral head and acetabular reamings sent to pathology. Hardware used: This is uncemented Joaquin total hip arthroplasty hardware for the femur a size 7 accolade II with 127 neck angle femoral component, for the acetabulum a size 58F trident II tritanium cluster hole shell, one 15 mm screw, for the insert a size 40F trident X3 polyethylene insert, and for the femoral head a size 40 - 4 LFIT metal V40 femoral head. Brief history/Indication: MINAL ELLINGTON was known in clinic and had a history of severe left hip pain. He failed conservative treatment with anti- inflammatories, pain pills, intra-articular injections and physical therapy. He elected to undergo left total hip arthroplasty due to continued pain and decreased quality of life. Radiographs showed severe end stage osteoarthritis of the hip with bone on bone contact. Informed consent was obtained from the patient. He understood the risks of surgery included but were not limited to: bleeding, infection, damage to nearby structures, intraoperative fracture, nerve palsy, failure of the hardware, early loosening, stiffness or loss of motion, dislocation, leg length discrepancy, anesthesia complications, stroke, heart attack, blood clot and . He wished to proceed. Intra-Operative findings: Intraoperatively the patient was noted to have severe loss of cartilage of the acetabulum and femoral head. Description of the Procedure: MINAL ELLINGTON was identified in the preanesthesia unit. His left hip was marked as the correct operative side. Informed consent was signed and placed in the chart. The patient was taken to the operating room and placed under anesthesia without complication. A tsang catheter was placed. The patient was placed on the peg board with all bony prominences well padded. The left lower extremity was prepped and draped in the usual sterile fashion. Preoperative time -out was made to correctly identify the patient, side and site. Appropriate intraoperative antibiotics were given within one hour of incision. A standard posterior incision was made and carried sharply down to the lateral fascia. A new 10 blade was used to make an incision in the fascia in line with the skin incision. A charnley retractor was placed. The piriformis and conjoined tendons were identified and elevated off the posterolateral femur using electrocautery. These were tagged with number 5 Ethibond. Next electrocautery was used to make a posterolateral capsular flap and this was tagged with number 5 Ethibonds. The hip was carefully dislocated. Lesser trochanter to the center of the femoral head was measured at 65 mm. The oscillating saw was used to make the femoral neck cut. The femoral head was carefully removed. The femur was retracted anteriorly and the acetabular retractors were placed. Long-handled knife was used to sharply remove any remaining labrum from the acetabular rim. The acetabulum was sequentially reamed up to a size 58. A bleeding subchondral bone bed was obtained. A trial liner was placed and had excellent fit and stability. A 58F cup with one screw was placed and had excellent stability with appropriate anteversion and abduction angle. A size 40F polyethylene liner was impacted into the acetabular shell. The liner was checked for stability and was stable. Next attention was turned to preparation of the femoral canal. A canal finder was used to enter the proximal femur. The femoral canal was sequentially broached up to a size 7 femoral broach trial. A trial neck and 40 - 4 trial femoral head was chosen. Lesser trochanter to center of the femoral head measurement was satisfactory. The hip was reduced and taken through a range of motion. The hip was stable in all positions with good soft tissue tension and appropriate leg lengths. The hip was dislocated and all trials were removed. The final implant chosen was a accolade II size 7. This stem was impacted into the femoral canal without difficulty. The stem was stable with appropriate anteversion. The femoral head chosen was a 40 - 4 metal head. The head was impacted onto the femoral neck without difficulty. The final lesser trochanter to center of the femoral head measurement was satisfactory. The hip was reduced and taken through a range of motion. The hip was stable in all positions with good soft tissue tension and appropriate leg lengths. The hip was copiously irrigated with sterile saline. The previously tagged capsule and tendons were repaired to the posterolateral femur through two trochanteric drill holes. The lateral fascia layer was closed using number 1 vicryls. The rest of the incision was closed in a layered fashion using 0 and 2-0 vicryls. The skin was closed using 3-0 monocryl suture and Dermabond. Sterile adaptic, 4x4s and paper tape was used to cover the incision. The patients anesthesia was reversed without difficulty. He was taken to the PACU in stable condition. Intended weight-bearing will be as tolerated with posterior hip precautions.
[2019-07-22] MEDS: Lactated Ringers 1000 ML Bag* 1,000 ML IV SCH (18:45)
[2019-07-22] MEDS: Aspirin EC TAB* 81 MG TAB.EC PO SCH (20:30)
[2019-07-22] MEDS: Docusate CAP* 100 MG PO SCH (20:30)
[2019-07-22] MEDS: Apixaban* 5 MG TAB PO SCH (20:31)
[2019-07-22] MEDS: Finasteride TAB* 5 MG PO SCH (20:31)
[2019-07-22] MEDS: Tamsulosin CAP* 0.4 MG PO SCH (20:31)
[2019-07-22] MEDS ORDERED: Carvedilol TAB* 3.125 MG PO SCH (21:00)
--- NOTE | 2019-07-22 21:18 | CONS ---
HOSPITAL MEDICINE CONSULTATION REPORT: DATE OF CONSULT: 07/22/19 PROVIDER: Sánchez Meredith NP ATTENDING PHYSICIAN: Dr. Cuevas. CONSULTING PHYSICIAN: Dr. Guerrero. REASON FOR CONSULT: Comanagement of chronic illness HISTORY OF PRESENT ILLNESS: Mr. Shen is an 84-year-old man with a history of aortic aneurysm, pacemaker placement, atrial fibrillation, prostate cancer, chronic kidney disease stage II, complete AV block, coronary artery disease, hyperlipidemia, hypertension, osteoarthritis, hiatal hernia, gout, diverticulitis. Mr. Shen presents today to the hospital for planned left total hip arthroplasty with Dr. Cuevas. Please see dictated H and P from SHAYNE Weston, for complete details. In brief, the patient had ongoing pain and failed conservative measures, and therefore opted for total left hip arthroplasty. In the postoperative period, the patient has complained of left hip pain only. The patient does have significant cardiac history. Therefore, Hospital Medicine was called regarding consultation. The patient states that up until the surgical procedure, his only health complaint has been pain in the left hip with ambulation, ambulates with cane at home. The patient denies any acute illnesses prior to coming in for surgery. Denies any chest pain or dizziness. PAST MEDICAL HISTORY: 1. Aortic aneurysm. 2. AFIB 3. Pacemaker. 4. Complete AV block. 5. Prostate cancer. 6. Chronic kidney disease, stage II. 7. Coronary artery disease. 8. Hyperlipidemia. 9. Hypertension. 10. Osteoarthritis. 11. Hiatal hernia. 12. Gout. 13. Diverticulitis. PAST SURGICAL HISTORY: 1. Right total hip arthroplasty. 2. Pacemaker placement. 3. Tonsillectomy. 4. 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 5. Appendectomy. CURRENT MEDICATIONS: 1. Multaq 400 mg twice a day. 2. Eliquis 5 mg twice a day. 3. Ramipril 5 mg 2 tabs daily. 4. Coreg 3.125 mg 2 tablets twice daily. 5. Crestor 5 mg by mouth every day. 6. Proscar 5 mg daily. 7. Centrum Silver as needed. 8. Glucosamine 1 tablet twice a day. 9. Polyethylene glycol as needed. 10. Aspirin 81 mg every day. 11. Tamsulosin 0.4 mg 2 tablets by mouth half an hour after dinner every day. 12. Calcium with vitamin D 600/200 mg unit twice daily. 13. Stiolto Respimat inhaler 2.5/2.5 mcg/act 2 puffs every day. 14. Tylenol as needed. 15. MiraLAX 17 g p.o. every day as needed. ALLERGIES: CODEINE, ULTRACET, and TYLENOL NO. 3. FAMILY HISTORY: The patient's mother at 98 years of age. No medical history. Father of 72 years of age due to an [place]. Sister at 80 years age due to [place]. Brother is 72 years of age. He is alive with history of arthritis. SOCIAL HISTORY: The patient lives with his , Carola. The patient denies smoking. The patient denies alcohol intake. The patient denies illicit drug use. The patient's surrogate decision maker is , Carola Shen. REVIEW OF SYSTEMS: General: No fevers, chills or unintended weight loss. HEENT: Denies headache. Denies changes in hearing. Denies changes in vision. Denies dysphagia. Respiratory: The patient denies shortness of breath. Denies chest pain. Cardiac: The patient denies chest pain. The patient denies edema. Abdomen: The patient denies any nausea, vomiting or diarrhea. Reports occasional constipation. : Denies gross hematuria. Denies dysuria. Musculoskeletal: No arthralgias or myalgias. Skin: The patient denies any rashes or lesions. Psychiatric: The patient denies any anxiety or depression. PHYSICAL EXAM: Vital Signs: 97.3 temperature, 62 heart rate, 100% on room air , 16 respirations, and BP 104/58. General: Mr. Shen is lying flat in bed , head slightly elevated. Does not appear to be in any acute distress. Neuro: He is alert and oriented x3. Moves all extremities. There is no facial asymmetry or focal weakness. Extraocular movements are intact. Cardiac: Heart sounds S1, S2. No murmurs, rubs or gallops. Rhythm is regular. Respiratory: Lung sounds are clear to auscultation bilaterally. No accessory muscle use and good aeration. Abdomen: Soft, nontender with bowel sounds positive x4 quadrants. Extremities: No cyanosis or edema noted. Pedal pulses are +1 bilaterally. + CMST bilateral lower extremities. +2 bilateral radial pulses. Skin is intact. DIAGNOSTIC STUDIES/LAB DATA: Hematology from 07/09/19, white blood cells 7.1, red blood cell 3.92, hemoglobin 12.4, hematocrit 36, platelet count 177. Chemistries from 07/09/19, sodium 139, potassium 4.1, chloride 106, BUN 25, creatinine 1.09, calcium 9.5. AST 18, ALT 18, alkaline phosphatase 111. INR 1.18 on 07/22/19, aPTT 42.7 from 07/09/19. IMPRESSION AND PLAN: Mr. Shen is an 84-year-old gentleman with significant history for aortic aneurysm, pacemaker, complete atrioventricular block, prostate cancer, chronic kidney disease, osteoarthritis, gout, diverticulitis, high blood pressure, hyperlipidemia, and coronary artery disease. He presents today to the hospital for planned left total hip arthroplasty. In the immediate postoperative period, he has had left hip pain only. Hospital Medicine was called regarding the consultation. Our recommendations are as follows: 1. Status post left total hip replacement. Management will be under Orthopedics. 2. Hypertension. The patient will continue taking Coreg 3.125 mg 2 tablets twice a day. Will stop the ramipril until further review. 3. AFib. The patient will continue Multaq 400 mg twice a day, paced rhythm 4. Complete AV Block. Status post pacemaker 5. Hyperlipidemia. The patient will continue Crestor 5 mg every day. 6. History of prostate cancer. The patient will continue taking Proscar 5 mg daily. 7. DVT prophylaxis. Apixaban 5 mg p.o. b.i.d. 8. Coronary artery disease. The patient will continue taking 81 mg of aspirin daily every p.m. 9. FEN. The patient will continue cardiac diet. 10. Code status. The patient is full code. TIME SPENT: Approximately 45 minutes was spent in the consultation of this patient, more than half that time was spent with the patient at bedside reviewing the events leading to this hospitalization, performing physical exam, and reviewing my plan of care. I have discussed plan of care with Dr. Guerrero; he is in agreement with assessment and plan of care. Thank you for allowing us to participate in the care of this patient. We will follow during this admission. SÁNCHEZ MEREDITH, WIDTH STRIPPER [id number]/[facility] #: [id number] HAM
[2019-07-22] MEDS: Magnesium Hydroxide LIQ* 30 ML UDC PO SCH (21:24)
[2019-07-22] MEDS: ceFAZolin 1 GM ADVAN(*) 1 GM in NS 0.9% 50 ML* 50 ML IVPB SCH (22:35)
[2019-07-22] MEDS: Dronedarone TAB* 400 MG PO SCH (22:36)
[2019-07-22] MEDS: Carvedilol TAB* 3.125 MG PO SCH (22:36)
[2019-07-22] MEDS: CMC:Rosuvastatin (NF) 5 MG TAB PO SCH (22:38)
[2019-07-22] MEDS: Acetaminophen TAB* 325 MG PO SCH (22:41)
[2019-07-23] MEDS: Lactated Ringers 1000 ML Bag* 1,000 ML IV SCH ×2 (04:51→16:49)
[2019-07-23] MEDS: Acetaminophen TAB* 325 MG PO SCH ×3 (06:16→21:48)
[2019-07-23] MEDS: ceFAZolin 1 GM ADVAN(*) 1 GM in NS 0.9% 50 ML* 50 ML IVPB SCH ×2 (06:17→13:32)
[2019-07-23 06:42] LABS: Hematocrit 28 % (42-52); Hemoglobin 9.9 g/dL (14.0-18.0); Mean Platelet Volume 9.1 fL (7.4-10.4); Platelet Count 120 10^3/uL (150-450)
[2019-07-23 07:01] LABS: Calcium 8.9 mg/dL (8.6-10.3); Potassium 4.9 mmol/L (3.5-5.0)
[2019-07-23 07:07] LABS: BUN/Creatinine Ratio 27.1 (8-20); EGFR African American 71.2 (>60); EGFR Non-African American 58.8 (>60)
[2019-07-23] MEDS: Magnesium Hydroxide LIQ* 30 ML UDC PO SCH ×2 (08:09→21:49)
[2019-07-23] MEDS: Dronedarone TAB* 400 MG PO SCH ×2 (08:10→21:48)
[2019-07-23] MEDS: Docusate CAP* 100 MG PO SCH ×2 (08:10→21:49)
[2019-07-23] MEDS: Vitamin THERAPEUTIC TAB PO SCH (08:10)
[2019-07-23] MEDS: Apixaban* 5 MG TAB PO SCH ×2 (08:10→21:49)
[2019-07-23] MEDS: Carvedilol TAB* 3.125 MG PO SCH ×2 (08:12→21:48)
[2019-07-23] MEDS ORDERED: Ramipril CAP* 10 MG PO SCH (09:00)
--- NOTE | 2019-07-23 10:51 | PN ---
Progress Note - Progress Note Date of Service: 07/23/19 SOAP: Subjective: [Pt was seen this morning sitting up in chair. He states that he is doing good. He does not have any pain at rest. He denies any chest pain, SOB, nausea or vomiting. Has been unable to have a bowel movement at this point. ] Objective: [General: Pt is alert and oriented x3. NAD MSK, LLE: Dressing is c/d/i. +df/pf. Calf soft and non tender. 2+ DP pulse. ] Vital Signs Temp 98.1 F 07/23/19 08:02 Pulse 61 07/23/19 08:02 Resp 18 07/23/19 10:04 BP 110/63 07/23/19 08:02 Pulse Ox 99 07/23/19 08:02 Intake & Output 07/22/19 07/23/19 07/23/19 18:59 06:59 18:59 Intake Total 1140 1935 Output Total 125 525 Balance 1015 1410 Weight 245 lb 13.047 oz Intake: IV Fluids 600 980 LR 500 980 NS 100ML, Cefazolin 2G 100 IVPB 55 ABX - CEFAZOLIN 55 Oral 540 900 Output: [place] 125 525 Assessment: [POD 1 LTHA ] Plan: [PT Continue with Eliquis 2.5 mg bid Percocet 5/325 Oxy 5mg for breakthrough pain Possible DC tomorrow. ]
--- NOTE | 2019-07-23 12:19 | PN ---
Subjective Date of Service: 07/23/19 Interval History: Resting in chair with at bedside. Reports left hip pain is "2" out of 10. Well controlled with current pain medication regime. Denies dizziness with exertion or position changes. Objective Active Medications: Acetaminophen (Tylenol Tab*) 975 mg PO Q8HR [facility] Last Admin: 07/23/19 06:16 Dose: 975 mg Apixaban (Eliquis*) 5 mg PO BID [facility] Last Admin: 07/23/19 08:10 Dose: 5 mg Aspirin (Aspirin Ec Tab*) 81 mg PO QPM [facility] Last Admin: 07/22/19 20:30 Dose: 81 mg Bisacodyl (Dulcolax Supp*) 10 mg IN DAILY PRN PRN Reason: CONSTIPATION Carvedilol (Coreg Tab*) 6.25 mg PO BID [facility] Last Admin: 07/23/19 08:12 Dose: Not Given Cyclobenzaprine HCl (Flexeril Tab*) 10 mg PO Q6H PRN PRN Reason: SPASMS Diphenhydramine HCl (Benadryl Iv*) 25 mg IV Q6H PRN PRN Reason: PRURITIS Diphenhydramine HCl (Benadryl Po*) 25 mg PO Q6H PRN PRN Reason: PRURITIS Docusate Sodium (Colace Cap*) 100 mg PO BID [facility] Last Admin: 07/23/19 08:10 Dose: 100 mg Dronedarone (Multaq Tab*) 400 mg PO BID [facility] Last Admin: 07/23/19 08:10 Dose: 400 mg Finasteride (Proscar Tab*) 5 mg PO 1700 [facility] Last Admin: 07/22/19 20:31 Dose: 5 mg Cefazolin Sodium 1 gm/ Sodium (Chloride) 50 mls @ 200 mls/hr IVPB Q8H [facility] Stop: 07/23/19 14:14 Last Admin: 07/23/19 06:17 Dose: 200 mls/hr Lactated Ringer's (Lactated Ringers 1000 Ml Bag*) 1,000 mls @ 100 mls/hr IV PER RATE [facility] Last Admin: 07/23/19 04:51 Dose: 100 mls/hr Lactulose (Lactulose*) 30 ml PO BID PRN PRN Reason: CONSTIPATION Magnesium Hydroxide (Milk Of Magnesia Liq*) 30 ml PO BID [facility] Last Admin: 07/23/19 08:09 Dose: 30 ml Magnesium Hydroxide (Milk Of Magnesia Liq*) 30 ml PO Q6H PRN PRN Reason: CONSTIPATION Morphine Sulfate (Morphine Inj (Syringe))*) 2 mg IV Q4H PRN PRN Reason: Pain - Unrelieved Multivitamins (Theragran Tab*) 1 tab PO DAILY [facility] Last Admin: 07/23/19 08:10 Dose: 1 tab Ondansetron HCl (Zofran Inj*) 4 mg IV Q6H PRN PRN Reason: NAUSEA Ondansetron HCl (Zofran Odt Tab*) 4 mg PO Q6H PRN PRN Reason: NAUSEA Ondansetron HCl (Zofran Tab*) 4 mg PO Q6H PRN PRN Reason: NAUSEA Oxycodone HCl (Roxycodone Tab*) 5 mg PO Q4H PRN PRN Reason: Pain - Breakthrough Oxycodone/Acetaminophen (Percocet 5/325 Tab*) 2 tab PO Q4H PRN PRN Reason: PAIN - SEVERE Polyethylene Glycol/Electrolytes (Miralax (17 Gm Dose Wm)) 17 gm PO DAILY PRN PRN Reason: Constipation Ramipril (Altace Cap*) 10 mg PO QAM [facility] Last Admin: 07/23/19 08:10 Dose: 10 mg Rosuvastatin Calcium (Crestor (Nf)) 5 mg PO 2100 JORDAN; Protocol Last Admin: 07/22/19 22:38 Dose: 5 mg Tamsulosin HCl (Flomax Cap*) 0.8 mg PO QPM [facility] Last Admin: 07/22/19 20:31 Dose: 0.8 mg Tramadol HCl (Ultram*) 50 mg PO Q6H PRN PRN Reason: PAIN - MODERATE Vital Signs - 8 hr 07/23/19 07/23/19 07/23/19 08:00 08:02 08:10 Temperature 98.1 F Pulse Rate 61 Respiratory 18 12 18 Rate Blood Pressure 110/63 (mmHg) O2 Sat by Pulse 99 Oximetry 07/23/19 07/23/19 10:04 11:31 Temperature 98.6 F Pulse Rate 74 Respiratory 18 16 Rate Blood Pressure 106/52 (mmHg) O2 Sat by Pulse 100 Oximetry Oxygen Devices in Use Now: None Appearance: Comfortable, NAD Eyes: No Scleral Icterus Ears/Nose/Mouth/Throat: Clear Oropharnyx, Mucous Membranes Moist Neck: NL Appearance and Movements; NL JVP Respiratory: Symmetrical Chest Expansion and Respiratory Effort, Clear to Auscultation Cardiovascular: NL Sounds; No Murmurs; No JVD, RRR, No Edema Abdominal: NL Sounds; No Tenderness; No Distention Lymphatic: No Cervical Adenopathy Extremities: No Edema Skin: No Rash or Ulcers, - - Dressing to Left Hip CDI Neurological: Alert and Oriented x 3, NL Muscle Strength and Tone Nutrition: Taking PO's Result Diagrams: 07/23/19 06:15 07/23/19 06:15 Additional Lab and Data: Laboratory Results - last 24 hr 07/22/19 07/22/19 07/23/19 12:16 12:18 06:15 Hgb 9.9 L Hct 28 L Plt Count 120 L MPV 9.1 INR (Anticoag Therapy) 1.18 H Sodium Potassium Chloride Carbon Dioxide Anion Gap BUN Creatinine Est GFR ( Amer) Est GFR (Non-Af Amer) BUN/Creatinine Ratio Glucose POC Glucose (mg/dL) 111 H Calcium 07/23/19 06:15 Hgb Hct Plt Count MPV INR (Anticoag Therapy) Sodium 137 Potassium 4.9 Chloride 107 Carbon Dioxide 25 Anion Gap 5 BUN 32 H Creatinine 1.18 H Est GFR ( Amer) 71.2 Est GFR (Non-Af Amer) 58.8 BUN/Creatinine Ratio 27.1 H Glucose 143 H POC Glucose (mg/dL) Calcium 8.9 Assess/Plan/Problems-Billing Assessment: 84 yr old male with 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 May resume at discharge if BP can tolerate (5) Prostate cancer Comment: - Hx of - Cont Proscar (6) CAD (coronary artery disease) Comment: - Hx of CAD is unclear. Patient reports he had a cardiac cath, but no stents or CA - Cont ASA and statin (7) Hyperlipidemia Comment: - Cont statin (8) CKD (chronic kidney disease) Comment: - Creatinine only slightly above patient's baseline - Encourage PO fluid - Avoid nephrotoxic medications - Could recheck tomorrow or as outpatient. (9) Anemia Comment: - H&H below patient's baseline - Likely secondary to surgery - Monitor H&H (10) DVT prophylaxis Comment: - Alonso (11) Full code status Status and Disposition: Dispo per ortho team Attending: Dee Araujo
[2019-07-23] MEDS ORDERED: NS 0.9% 500 ML* 500 ML IV ONE (14:30)
[2019-07-23] MEDS: Aspirin EC TAB* 81 MG TAB.EC PO SCH (17:15)
[2019-07-23] MEDS: Finasteride TAB* 5 MG PO SCH (17:15)
[2019-07-23] MEDS: Tamsulosin CAP* 0.4 MG PO SCH (18:27)
[2019-07-23] MEDS: oxyCODONE TAB* 5 MG TAB PO PRN (20:26)
[2019-07-23] MEDS: CMC:Rosuvastatin (NF) 5 MG TAB PO SCH (21:58)
[2019-07-24] MEDS: Lactated Ringers 1000 ML Bag* 1,000 ML IV SCH (02:43)
[2019-07-24 05:50] LABS: Hematocrit 22 % (42-52); Hemoglobin 7.7 g/dL (14.0-18.0); Mean Platelet Volume 8.9 fL (7.4-10.4); Platelet Count 106 10^3/uL (150-450)
[2019-07-24] MEDS: Acetaminophen TAB* 325 MG PO SCH (06:21)
[2019-07-24] MEDS: Magnesium Hydroxide LIQ* 30 ML UDC PO SCH (08:40)
[2019-07-24] MEDS: Apixaban* 5 MG TAB PO SCH (08:41)
[2019-07-24] MEDS: Docusate CAP* 100 MG PO SCH (08:41)
[2019-07-24] MEDS: oxyCODONE TAB* 5 MG TAB PO PRN (08:41)
[2019-07-24] MEDS: Vitamin THERAPEUTIC TAB PO SCH (08:41)
[2019-07-24] MEDS: Carvedilol TAB* 3.125 MG PO SCH (08:41)
[2019-07-24] MEDS: Dronedarone TAB* 400 MG PO SCH (08:41)
--- NOTE | 2019-07-24 10:10 | DS ---
Orthopedic Discharge Summary - Discharge Summary Date of Admission:07/22/19 Date of Discharge: 07/24/19 Date of Surgery: 07/22/19 Attending Orthopedic Provider: Dr. Cuevas Pre-operative Diagnosis: Left hip pain Operative Procedure: Left total hip arthroplasty Disposition of Patient: Home Home care vs Outpatient services: Outpatient at [facility] Condition of Patient: Good Pain medication RX at discharge: Percocet sent to [facility] DVT prophylaxis RX at discharge: Patient's Eliquis already given by cardiology History: MINAL ELLINGTON is a 84 year old M with years of increasingly severe left hip pain. Patient has failed conservative management and has elected to undergo a Left total hip arthroplasty Hospital Course: MINAL was admitted to [facility] on 07/22/19. Patient underwent a Left total hip arthroplasty without complication followed by a brief recovery in PACU and transfer to the Short Stay Surgical Unit in stable condition. Our hospitalist service, physical therapy and occupational therapy also participated in this patients care. Post-op day 1: patient was alert and in no acute distress. Dressing was clean, dry and intact. Operative extremity dorsiflexion and plantarflexion intact, sensation intact to light touch distally, DP2+. Patient's BP decreased, so his TERESO inhibitor was held today. Post-op day two: dressing was changed, incision was clean, dry and intact. BP returned to baseline. Patient was deemed to be medically and orthopedically stable for discharge. Physical therapy goals were met. Home Medications Medication Instructions Recorded Confirmed Type Aspirin [Aspir 81] 81 mg PO QPM 10/07/12 07/22/19 History Finasteride TAB* [Proscar TAB*] 5 mg PO 1700 10/07/12 07/22/19 History Ramipril CAP* [Altace CAP*] 10 mg PO QAM 10/07/12 07/22/19 History Tamsulosin CAP* [Flomax CAP*] 2 tab PO QPM 09/06/16 07/22/19 History Glucosam/Chondr/Collagn/Hyalur 1 tab PO BID 10/07/18 07/22/19 History [Glucosamine & Chondroitin Cap] Apixaban* [Eliquis*] 5 mg PO BID 12/30/18 07/22/19 History Carvedilol TAB* [Coreg TAB*] 2 tab PO BID 12/30/18 07/22/19 History Calcium Carbonate/Vitamin D3 1 each PO BID 07/07/19 07/22/19 History [Calcium 600 + Vit D Tablet] Dronedarone TAB* [Multaq TAB*] 400 mg PO BID 07/07/19 07/22/19 History Rosuvastatin Calcium [Crestor] 5 mg PO QPM 07/07/19 07/22/19 History Multivit-Min/FA/Lycopen/Lutein 1 each PO QAM 07/09/19 07/22/19 History [Centrum Silver Men Tablet] Polyethylene Glycol 3350 [Clearlax] 1 juan f PO QAM 07/09/19 07/22/19 History Stiolto Respimat Inh [place] (60 1 puff BID 07/22/19 07/22/19 History puff) Discharge Instructions following Orthopedic Surgery: Activity: * Weight Bearing as tolerated * Continue physical therapy and occupational therapy exercises as shown * If you have elected to have home physical therapy, continue therapy exercises at home. If you have elected outpatient physical therapy, please start therapy as an outpatient right away. Hip replacements: Continue Hip Precautions- do not cross legs or bend greater than 90 degrees/squat Wound care: * OK to shower on post-op day 3, no bathing, swimming, or submerging wound. * Use gentle soap, pat dry. Cover with gauze, TERESO wrap or tape. * If you elected to have a visiting home nurse, they will perform wound checks. Call Orthopedic office for: * Increased drainage * Redness * Increased pain * Fever Go to ER with shortness of breath or chest pain. Diet: * Regular diet * Increase fluids and fiber to prevent constipation. * Continue to use stool softeners, call office if no bowel motion within 48 hours. Medications See Home Medication List in your packet for medications that you should take after discharge. DVT Prophylaxis: this will be covered by the Eliquis you are already on, so no additional medication needed. Eliquis Dosin mg, 1 tab every 12 hours as per cardiology Pain Control: Percocet 5/325 mg 1 tab for moderate pain and 2 tabs for severe pain by mouth every 4 hours as needed. Maximum of 10 tabs per day. Hold for sedation , wean off as soon as pain allows Please note that Percocet contains Tylenol (acetaminophen). Maximum daily dose of Tylenol is 4000 mg from all sources. Antibiotics are required prior to any dental work. FOLLOW UP: Follow up with Dr. Cuevas Within 10 - 14 days, call for appointment Please call our office with any questions or concerns ([phone])
[2019-07-24 11:20] VITALS: BP 119/62
== END 2019-07-24 11:45 | disposition home health service (06) | DRG 470 ==
LOC: AA 10:42 → SSU 15:25
PROVIDERS: ADMIT Orthopaedic Surgery Adult Reconstructive Orthopaedic Surgery; ATTEND Orthopaedic Surgery Adult Reconstructive Orthopaedic Surgery
PROC: 0SRB02A Replacement of Left Hip Joint with Metal on Polyethylene Synthetic Substitute, Uncemented, Open Approach (ICD-10-PCS; principal; 2019-07-22 14:00)
DX: M16.12 Unilateral primary osteoarthritis, left hip (principal); I44.2 Atrioventricular block, complete; I48.91 Unspecified atrial fibrillation; E11.22 Type 2 diabetes mellitus with diabetic chronic kidney disease; N18.2 Chronic kidney disease, stage 2 (mild); I25.10 Atherosclerotic heart disease of native coronary artery without angina pectoris; E78.5 Hyperlipidemia, unspecified; I12.9 Hypertensive chronic kidney disease with stage 1 through stage 4 chronic kidney disease, or unspecified chronic kidney disease; C61 Malignant neoplasm of prostate; I71.9 Aortic aneurysm of unspecified site, without rupture; D64.9 Anemia, unspecified; Z96.641 Presence of right artificial hip joint; Z95.0 Presence of cardiac pacemaker; Z79.01 Long term (current) use of anticoagulants; Z79.84 Long term (current) use of oral hypoglycemic drugs; Z79.899 Other long term (current) drug therapy; Z79.82 Long term (current) use of aspirin; Z88.6 Allergy status to analgesic agent; Z88.5 Allergy status to narcotic agent; Z88.8 Allergy status to other drugs, medicaments and biological substances; Z82.49 Family history of ischemic heart disease and other diseases of the circulatory system; Z82.5 Family history of asthma and other chronic lower respiratory diseases
CPT/HCPCS: 36415; 80048; 85014; 85018; 85049; 85610; 88304; 88311; A9270-GY; C1713; C1776; J0690; J1100; J1170; J1885; J2250; J2405; J2704; J2710; J2765; J2795; J3010